=== PATIENT | female | born 1975 | race Caucasian/White ===

== ENCOUNTER 2019-01-03 16:12 | Emergency (ER) | payer OTHER ==
[2019-01-03] MEDS: FAMOTIDINE 20 MG INJ IV (16:25)
[2019-01-03] MEDS: EPINEPHrine 1 MG INJ IM ×2 (16:25→16:38)
[2019-01-03] MEDS: DIPHENHYDRAMINE 50 MG INJ IV (16:26)
[2019-01-03] MEDS: LORAZEPAM 2 MG INJ IV (16:26)
[2019-01-03] MEDS: METHYLPREDNISOLONE 125 MG INJ IV (16:26)
[2019-01-03] MEDS: SOD CHLORIDE 0.9% 1,000 ML IV (16:31)
[2019-01-03] MEDS: ALBUTEROL 0.5% (NEB) 2.5 MG/0.5 ML AMP INH (16:33)
[2019-01-03] MEDS: IPRATROPIUM (NEB) 0.5 MG/2.5 ML AMP INH (16:33)
== END 2019-01-03 19:11 | disposition home or self-care (01) ==
LOC: E/R 16:12
DX: T78.3XXA Angioneurotic edema, initial encounter (principal); R40.2142 Coma scale, eyes open, spontaneous, at arrival to emergency department; R40.2362 Coma scale, best motor response, obeys commands, at arrival to emergency department; R40.2252 Coma scale, best verbal response, oriented, at arrival to emergency department; T78.1XXA Other adverse food reactions, not elsewhere classified, initial encounter
CPT/HCPCS: 94644; 96372; 96374; 96375; 99291-25